=== PATIENT | female | born 1995 | race Caucasian/White ===

== ENCOUNTER 2016-11-08 21:15 | Observation (INO) ==
[2016-11-08] MEDS ORDERED: Ketorolac 15 MG/ML VIAL IVP ONE (21:40)
[2016-11-08] MEDS ORDERED: Ondansetron 4 MG/2 ML VIAL IVP ONE (21:40)
[2016-11-08] MEDS ORDERED: Ringers Solution, Lactated 1,000 ML IVC ONE (21:40)
[2016-11-08] MEDS ORDERED: *HR* HYDROmorphone (PF) 1 MG/ML SYRINGE IVP ONE (21:40)
--- NOTE | 2016-11-08 21:44 | Emergency Department Note ---
Disposition Clinical Impression: Calculus of kidney Disposition: Admitted As Inpatient Condition: Good Time of Disposition: 21:53 General Adult HPI - General Chief complaint: ED Abdominal Pain Stated complaint: Kidney stone per mary edwards Time Seen by Provider: 11/08/16 21:33 Source: patient Limitations: no limitations Nursing Notes Reviewed: Yes Vital Signs Reviewed: Yes - History of Present Illness HPI Narrative: Patient began having left flank pain 6 days ago. She states she does have history of kidney stones. Has never had to have surgery to have them removed. She was seen yesterday jerry and diagnosed with an 8 mm stone. She states that she is not discharged with Percocet and this is not helping her pain anymore. SHe is now vomiting. There are no provoking or alleviating factors. The pain radiates from her left back into her left groin. Pain Scale: 9 - Related Data Home Medications Medication Instructions Recorded Confirmed Norgestimate-Ethinyl Estradiol 1 tab PO DAILY 11/08/16 11/08/16 [Sprintec 28 Day Tablet] Omeprazole [PriLOSEC] 40 mg PO DAILY 11/08/16 11/08/16 Oxycodone HCl/Acetaminophen 1 each PO Q6H PRN 11/08/16 11/08/16 [Percocet 5-325 mg Tablet] Tamsulosin [Flomax] 0.4 mg PO DAILY 11/08/16 11/08/16 Allergies Allergy/AdvReac Type Severity Reaction Status Date / Time No Known Allergies Allergy Verified 11/08/16 21:17 All systems ED: reviewed and negative except as stated. Constitutional: Denies: fever, chills ENT ED: Denies: congestion Cardiovascular: Denies: chest pain, palpitations, dyspnea on exertion, syncope Respiratory: Denies: cough, dyspnea, wheezes Gastrointestinal: Reports: abdominal pain, nausea, vomiting. Denies: diarrhea Genitourinary: Denies: urgency, dysuria, frequency, hematuria Musculoskeletal: Reports: back pain (Left-sided). Denies: neck pain Neurological: Denies: headache, weakness Past Medical History - Past Medical History Medical history: Reports: kidney stones Psychiatric history: Reports: no psych history SHELVER history: Reports: no SHELVER history - Social History Smoking Status: Current every day smoker Smokeless Tobacco Status: No Alcohol use: Reports: rarely Drug use: Reports: none Physical Exam - General Limitations: no limitations General appearance: alert, in no apparent distress - Head Head exam: atraumatic, normocephalic, normal inspection - Eye Eye exam: Present: normal appearance, PERRL, EOMI. Absent: scleral icterus - ENT ENT exam: normal exam, normal oropharynx, mucous membranes moist - Neck Neck exam: Present: normal inspection, full ROM, trachea midline. Absent: tenderness - Chest Chest inspection: Present: normal inspection, symmetric chest wall rise - Respiratory Respiratory exam: Present: normal lung sounds bilaterally. Absent: respiratory distress, wheezes - Cardiovascular Cardiovascular exam: Present: regular rate, normal rhythm, normal heart sounds - Abdominal Exam Abdominal exam: Present: soft, tenderness (Left upper and left lower), normal bowel sounds. Absent: distention, guarding, rebound, rigidity, organomegaly, Castillo's sign, Rovsing's sign, tenderness at McBurney's Point - Extremities Exam Extremities exam: Present: normal inspection, full ROM, normal capillary refill. Absent: tenderness, pedal edema - Back Exam Back exam: Present: normal inspection, full ROM, CVA tenderness (L). Absent: tenderness, CVA tenderness (R) - Neurological Exam Neurological exam: Present: alert, oriented X3 - Psychiatric Psychiatric exam: Present: normal affect, normal mood - Skin Skin exam: Present: warm, dry, intact, normal color. Absent: rash, cyanosis Course Course Narrative: Female patient resting in bed leaning forward. She has appear to be in pain. She is holding her left back and vomiting. She states that she was diagnosed yesterday [place] with a kidney stone. She states that she was discharged with Percocet but these are not helping her pain. She states she has been able to keep the Percocet down. She states that she is now vomiting due to the pain. She denies any dysuria or hematuria however does have left back pain that radiates down into her groin. Shortness of breath or chest pain. Her lung sounds are clear heart tones are normal. Her abdomen is soft on exam however she does have some tenderness her left upper quadrant and her left flank as well as her left lower quadrant. We will provide patient with pain medication as well as antinausea medication. She does not appear toxic at this time. After reviewing her CT from [place] yesterday she has an 8 mm stone in her ureteropelvic junction. I have discussed with Dr. De Jesus bringing the patient in for management of the stone. He agrees with this plan. We will admit patient to the hospital for pain management as well as possible stone removal. - Consultations Consultation #1: Spoke with Dr. De Jesus. He agrees to admit the patient to the hospital. Time: 21:53 Vital Signs Temperature 98.3 F 11/08/16 21:18 Pulse Rate 108 11/08/16 21:18 Respiratory Rate 20 11/08/16 21:18 Blood Pressure 146/95 11/08/16 21:18 O2 Sat by Pulse Oximetry 98 11/08/16 21:18 Temperature 98.5 F 11/08/16 23:01 Pulse Rate 99 11/08/16 23:01 Respiratory Rate 18 11/08/16 23:01 Blood Pressure 135/99 11/08/16 23:01 O2 Sat by Pulse Oximetry 93 11/08/16 23:01 Oxygen Delivery Oxygen Delivery Room Air Medical Decision Making - Radiology Data Radiology results reviewed: Yes I reviewed the patient's radiology results. Attestation Statement - Attestation Attestation: I examined this patient and my medical decision-making was reviewed with the Resident Physician. I agree with the documented findings, disposition and treatment plan as described except to the extent set forth below. 8 mm dx'd yesterday, failed outpatient management - pain refractory to meds. Urology has accepted for admission.
[2016-11-08] MEDS ORDERED: Ketorolac 15 MG/ML VIAL IVP PRN (22:32)
[2016-11-08] MEDS ORDERED: *HR* OxyCODONE Immed Rel 5 MG TABLET PO PRN (22:32)
[2016-11-08] MEDS ORDERED: *HR* HYDROmorphone (PF) 1 MG/ML SYRINGE IVP PRN (22:32)
[2016-11-08] MEDS ORDERED: Naloxone 0.4 MG/ML INJ IVP PRN (22:32)
[2016-11-08] MEDS ORDERED: Acetaminophen 325 MG TABLET PO PRN (22:32)
[2016-11-08] MEDS ORDERED: Promethazine 12.5 MG in 0.9 % Sodium Chloride 50 ML IVPB PRN (22:35)
[2016-11-09] MEDS: Ondansetron 4 MG/2 ML VIAL IVP PRN ×2 (01:12→07:25)
[2016-11-09] MEDS: Ringers Solution, Lactated 1,000 ML IVC SCH ×3 (02:49→15:30)
[2016-11-09] MEDS ORDERED: *HR* Promethazine 25 MG/ML VIAL IVP PRN ×3 (06:53→18:24)
--- NOTE | 2016-11-09 08:22 | Urology History & Physical ---
Date of Encounter: 11/09/16 Time of Encounter: 08:19 Assessment and Plan (1) Calculus of kidney Current Visit: Yes Status: Acute 21 year old woman with a history of left flank pain secondary to a left 7mm UPJ stone. I recommend proceeding with a left ureteroscopy, laser lithotripsy, and stent placement. I informed her of the risks of the surgery which include, but are not limited to bleeding, infection, injury to other structures, need for further procedures, incomplete treatment, need for stent, stent irritation, need for nephrostomy tube, need for open repair and the risk of anesthesia. She is willing to proceed. History of Present Illness Chief complaint: Left flank pain HPI: Ms. Cooper is a 21 year old female presents with a 1-2 day history of left flank pain. She was seen in the ER. A CT showed a 7mm left proximal ureteral stone. She was discharged home on oral medications. The pain became worse and she had nausea with emesis. The pain was sharp and was located in the left flank and lower quadrant. She was admitted for pain control. She reports a history of kidney stones. Past Med Surg Social Fam HX - Past Medical History Medical history: kidney stones Psychiatric history: no psych history - Past Surgical History Surgical History: cholecystectomy - Social History Smoking Status: Current every day smoker Smokeless Tobacco Status: No Alcohol use: rarely Drug use: none - Family History Mother Living Status: Still Living Medications and Allergies Norgestimate-Ethinyl Estradiol [Sprintec 28 Day Tablet] 1 tab PO DAILY 11/08/16 [History] Omeprazole [PriLOSEC] 40 mg PO DAILY 11/08/16 [History] Oxycodone HCl/Acetaminophen [Percocet 5-325 mg Tablet] 1 each PO Q6H PRN [History] Tamsulosin [Flomax] 0.4 mg PO DAILY 11/08/16 [History] Allergies No Known Allergies Allergy (Verified 11/08/16 21:17) Review of Systems - Constitutional no chills, no fever(s) - EENT Nose, mouth and throat: no dizziness - Cardiovascular no chest pain - Respiratory no dyspnea - Gastrointestinal nausea, vomiting - Genitourinary Genitourinary: flank pain, no hematuria - Musculoskeletal no back pain - Integumentary no erythema, no rash - Neurological no weakness - Psychiatric no suicidal ideation - Hematologic/Lymphatic no easy bleeding - Allergic/Immunologic no wheezing Exam Initial Vital Signs Temp Pulse Resp BP Pulse Ox 98.3 F 108 20 146/95 98 11/08/16 21:18 11/08/16 21:18 11/08/16 21:18 11/08/16 21:18 11/08/16 21:18 - General physical appearance Present: well developed, well nourished, no distress - Eyes Absent: icteric - ENT Present: normal nares - Neck Present: trachea midline - Respiratory Present: normal respiratory effort - Cardiovascular Cardiovascular exam IM: RRR - Abdomen Abdomen: Present: soft Urology Results - Labs Abnormal lab results POC Glucose 94 (58-89) H 11/09/16 06:05 All other labs normal. - Imaging CT scan - abdomen: report reviewed, image reviewed CT scan - pelvis: report reviewed, image reviewed
[2016-11-09] MEDS ORDERED: *HR* Propofol 200 MG/20 ML VIAL IVP ONE (15:47)
[2016-11-09] MEDS ORDERED: Lidocaine -MPF 2% 2 ML VIAL ONE ×2 (15:47)
--- NOTE | 2016-11-09 15:56 | Anesthesia Evaluation PreOp ---
Date of Encounter: 11/09/16 Time of Encounter: 15:52 - Past History Planned Operation: L-Ureteral Stone extraction/laser lithotripsy Cardiac History: Denies any Significant Hx Pulmonary History: Denies Any Significant HX FISHER PURSE SEINE History: Denies Any Significant HX Other Medical History: Renal (Kidney stones) Anesthesia History: Past Anesthesia (Lap [place] 09/2016) Alcohol Use: rarely Drug use: none Medications and Allergies Norgestimate-Ethinyl Estradiol [Sprintec 28 Day Tablet] 1 tab PO DAILY 11/08/16 [History] Omeprazole [PriLOSEC] 40 mg PO DAILY 11/08/16 [History] Oxycodone HCl/Acetaminophen [Percocet 5-325 mg Tablet] 1 each PO Q6H PRN [History] Tamsulosin [Flomax] 0.4 mg PO DAILY 11/08/16 [History] Allergies No Known Allergies Allergy (Verified 11/08/16 21:17) - Meds/Allergy Pre-op Review Medications Reviewed: Yes Allergies Reviewed: Yes Beta Blockers on Current Med List: No Anesthesia Results - Labs Laboratory Tests 11/05/16 11/05/16 11/05/16 15:25 15:25 15:25 WBC 11.9 H Hgb 14.3 Hct 39.7 Plt Count 287 Sodium 141 Potassium 3.4 L Chloride 110 H Carbon Dioxide 17 L BUN 8 Creatinine 0.91 Est GFR (Non-Af Amer) > 60 Glucose 103 H POC Glucose Urine Test Negative 11/09/16 06:05 WBC Hgb Hct Plt Count Sodium Potassium Chloride Carbon Dioxide BUN Creatinine Est GFR (Non-Af Amer) Glucose POC Glucose 94 H Urine Test Anesthesia Exam Vital Signs Temp Pulse Resp BP Pulse Ox 11/09/16 11:39 98.5 F 95 16 131/88 98 11/09/16 07:45 98.6 F 93 96 111/77 11/09/16 03:58 98.5 F 99 16 119/76 95 11/08/16 23:01 98.5 F 99 18 135/99 93 11/08/16 22:41 18 139/96 11/08/16 22:16 102 18 140/101 95 11/08/16 21:18 98.3 F 108 20 146/95 98 Intake and Output 11/09/16 11/09/16 11/09/16 07:59 15:59 23:59 Intake Total 0 / 0 1000 / 1000 Output Total 1700 / 1700 300 / 300 Balance -1700 / -1700 700 / 700 Intake: IV Fluids 1000 / 1000 Lactated Ringers 1,000 ML 1000 / 1000 @ 125 mls/hr IVC .Q8H DEYSI Rx#:[id number] Oral 0 / 0 0 / 0 Output: Urine 1700 / 1700 300 / 300 Other: Meal NPO Weight 95.436 kg Blood Glucose* 94 80 Patient Weight 11/09/16 23:59 Weight 95.436 kg Weight: 5'4" NPO (# of Hours): 210# BMI = 36 - HEENT Pupil (Motor): Pupils equal, EOMI Mallampati: II Teeth: Normal Oral Opening: Greater than 3 - FISHER PURSE SEINE LOC: Oriented FISH[place] PUR[place] SEINE Motor: Normal RUE, Normal LUE, Normal RLE, Normal LLE, Normal Face FISHER PURSE SEINE Sensory: Normal: RUE, LUE, RLE, LLE, Face - Cardiac Rhythm: Regular Murmur: None - Pulmonary Breath Sounds: bilateral Clear Respiratory Effort: Symmetrical Anesthesia Assess/Plan ASA Score: 2 Modified Andre Scale for Level of Consciousness: Cooperative, oriented, and tranquil Anesthetic Plan: General Monitoring Plan: Standard Monitors Recovery Plan: PACU Anes Supervising Prov Stmt: Pt seen/evaluated R&B Discussed, questions answered and consent obtained. Iman Puentes MD
[2016-11-09] MEDS ORDERED: *HR* Midazolam HCl 2 MG/2 ML VIAL ONE (16:44)
[2016-11-09] MEDS ORDERED: *HR* FentaNYL (PF) 100 MCG/2 ML VIAL ONE (16:44)
[2016-11-09] MEDS ORDERED: Dexamethasone 4 MG/ML VIAL ONE (17:08)
[2016-11-09] MEDS ORDERED: Ondansetron 4 MG/2 ML VIAL ONE (17:08)
[2016-11-09] MEDS ORDERED: *HR* HYDROmorphone (PF) 1 MG/ML SYRINGE IVP PRN ×2 (17:13→18:24)
[2016-11-09] MEDS ORDERED: *HR* Morphine 2 MG/ML SYRINGE IVP PRN (17:13)
[2016-11-09] MEDS ORDERED: Ondansetron 4 MG/2 ML VIAL IVP ONE (17:13)
[2016-11-09] MEDS ORDERED: Lacri-Lube 3.5 GM TUBE ONE ×2 (17:33)
--- NOTE | 2016-11-09 17:48 | Operative Note ---
Date of procedure: 11/09/16 Pre-op diagnosis: Left ureteral stone Post-op diagnosis: same Procedure: Left ureteroscopy, laser lithotripsy, and stent placement. Implants: 6 [place] by 26 cm double-J stent. Complications: None. Anesthesia: RUSSELL Surgeon: Moise De Jesus Estimated blood loss (cc): 1 Specimen: None Condition: stable Disposition: PACU Procedure in Detail: Indications: Charisma is a 21-year-old female who has a history of nephrolithiasis. A KUB showed a left 7mm proximal ureteral stone. She elected to undergo a left ureteroscopy, laser lithotripsy, and stent placement. She was aware of the risks of the procedure including but not limited to bleeding, infection, injury to other structures, need for further procedures, stent irritation, need for nephrostomy tube, need for open repair, risks otherwise unforeseen, and the risk of anesthesia. She is willing to proceed. Procedure in Detail: After informed consent was obtained the patient was brought back to the operating room and placed in the supine position. A time out was performed. General anesthesia was administered and an LMA was placed. She was then placed in the lithotomy position. She was prepped and draped in the usual sterile fashion. Cystoscopy was performed. The anterior urethra was normal. There was no evidence of bladder tumors. The ureteral orifices were in the normal orthotopic position. There was no duplication of the ureteral orifices. The Zip wire was placed in the left ureteral orifice. The wire was then brought up into the kidney under fluoroscopic guidance. I then passed the 8/10 [place] ureteral dilator. The sensor wire was in place. The sheath was removed. I attempted to pass the 11/13 [place] ureteral access sheath, but it did not move past the distal ureter. The flexible ureteroscope was then advanced into the kidney. A stone was seen in the renal pelvis. This was moved into the upper pole calyx. The stone was then fractionated using 200 micron fiber. All the fragments seen to be less than 1 mm in diameter. The ureteroscope was then removed and the pullout ureteroscopy showed no evidence of ureteral injury. A 6 [place] by 26cm JJ stent was then placed. A good curl was seen in the kidney and the bladder. The dangle string was left intact and will be used through removed the stent at a later date. The patient was then awakened from general anesthesia and brought to recovery room in good condition. All sponge, needle, and instrument counts were correct.
--- NOTE | 2016-11-09 17:51 | Discharge Summary ---
Date of Encounter: 11/09/16 Time of Encounter: 17:48 - Discharge Diagnosis (1) Calculus of kidney Priority: Primary Status: Acute - Discharge Medications Prescriptions: OxyCODONE/APAP 5/325 [Percocet 5/325 MG] 1 each PO Q4HR PRN #20 tablet PRN Reason: Pain Docusate [Colace] 100 mg PO BID #60 capsule Phenazopyridine HCl [Pyridium] 200 mg PO TIDAC #12 tab Home Medications: Norgestimate-Ethinyl Estradiol [Sprintec 28 Day Tablet] 1 tab PO DAILY 11/08/16 [History] Omeprazole [PriLOSEC] 40 mg PO DAILY 11/08/16 [History] Oxycodone HCl/Acetaminophen [Percocet 5-325 mg Tablet] 1 each PO Q6H PRN [History] Tamsulosin [Flomax] 0.4 mg PO DAILY 11/08/16 [History] Docusate [Colace] 100 mg PO BID #60 capsule 11/09/16 [Rx] OxyCODONE/APAP 5/325 [Percocet 5/325 MG] 1 each PO Q4HR PRN #20 tablet 11/09/16 [Rx] Phenazopyridine HCl [Pyridium] 200 mg PO TIDAC #12 tab 11/09/16 [Rx] Allergies/Adverse Reactions: Allergies No Known Allergies Allergy (Verified 11/08/16 21:17) Labs on day of discharge: Labs from last 24 hours 11/09/16 11/09/16 11:23 06:05 POC Glucose 80 94 H - Impressions ITS Impressions KUB X-Ray 11/08/16 22:35 IMPRESSION: 8 mm calculus in the proximal left ureter, stable in position from yesterday's study. D/ / Moise Montelongo MD / Moise Montelongo MD Interpreting Provider: Moise Montelongo MD Date of admission: 11/08/16 22:09 Primary care physician: Violetta Crow CNP Discharging clinician: Moise De Jesus Anticipated date of discharge: 11/09/16 - Patient Status Disposition: Home, Self-Care Condition: Good Overall status at discharge: patient is progressing back to baseline - Discharge Instructions Follow Up With: Violetta Crow CNP [Primary Care Provider] - Moise De Jesus MD [Partnered Physician] - (In 2-3 weeks.) Forms: ED Satisfaction Letter, Work/School Release Additional Instructions: 1. The patient can remove her stent in 3-5 days by pulling on the string. 2. She should expect to feel flank pain with voiding. 3. The patient should call for any fevers, chills, nausea, emesis, or uncontrolled pain. 4. Please provide a work excuse if necessary for up to 1 week off. - Diet and Activity Activity: increase activity as tolerated Diet: advance to your usual diet - Hospital Course Hospital course: Ms. Cooper is a 21 year old female presented with left flank pain. A CT previously showed a 7 mm left proximal ureteral stone. She was admitted for pain control on November 08, 2016. On November 09, 2016 she underwent a left ureteroscopy , laser lithotripsy, and stent placement. She did well after that surgery and was discharged home later that day. - Time Spent with Patient Total time spent providing and/or coordinating discharge services: Exam Initial Vital Signs Temp Pulse Resp BP Pulse Ox 98.3 F 108 20 146/95 98 11/08/16 21:18 11/08/16 21:18 11/08/16 21:18 11/08/16 21:18 11/08/16 21:18 - General physical appearance Present: well developed, well nourished, no distress - Eyes Absent: icteric - ENT Present: normal nares - Neck Present: trachea midline - Respiratory Present: normal respiratory effort - Cardiovascular Cardiovascular exam IM: RRR - Abdomen Abdomen: Present: soft
[2016-11-09] MEDS ORDERED: Ringers Solution, Lactated 1,000 ML IVC SCH (18:24)
[2016-11-09] MEDS ORDERED: Ondansetron 4 MG/2 ML VIAL IVP PRN (18:24)
[2016-11-09] MEDS ORDERED: *HR* OxyCODONE Immed Rel 5 MG TABLET PO PRN (18:24)
[2016-11-09] MEDS ORDERED: Acetaminophen 325 MG TABLET PO PRN (18:24)
[2016-11-09] MEDS ORDERED: Naloxone 0.4 MG/ML INJ IVP PRN (18:24)
[2016-11-09] MEDS ORDERED: Ketorolac 15 MG/ML VIAL IVP PRN (18:24)
--- NOTE | 2016-11-09 18:26 | Anesthesia Evaluation Post Op ---
Date of Encounter: 11/09/16 Time of Encounter: 18:25 - Vital Signs Vital Signs: Vital Signs/O2 Sat/Glucose, Most Current Temp Pulse Resp BP Pulse Ox 11/09/16 17:46 98.8 F 112 18 109/75 94 11/09/16 16:05 98.6 F 77 16 121/86 100 - Lungs Lungs: Clear Ascult./Percussion - Airway Airway: Non-obstructed - Cardiovascular Regular Rate - Mental Status Mental Status: Alert & Oriented, Answers Appropriately - Pain Pain Scale: 3 (urgency) Pain Scale used: Numeric (1 - 10) - Nausea Vomiting Nausea Vomiting: Not Present - Hydration Hydration: Ice chips, Able to void - Discharge PostOp Status: Transfer Patient to floor Anes Supervising Prov Stmt: Pt seen/evaluated, R&B discussed, questions answered and consent obtained. - MD Deloris
[2016-11-09 19:50] VITALS: BP 131/91
== END 2016-11-09 19:42 | disposition home or self-care (01) ==
LOC: 3ANU 21:15 → EMEROO 21:15 → 3ANU 22:41
PROVIDERS: ADMIT Urology; ATTEND Urology

== ENCOUNTER → 2017-08-02 20:47 | Observation (INO) ==
[2017-08-02 18:15] LABS: Basophils # 0.1 K/mcL (0.0-0.2); Basophils % 0.5 %; Eosinophils % 0.2 %; Hematocrit 39.7 % (35.3-44.9); Hemoglobin 13.7 g/dL (11.5-15.4); Immature Granulocytes % 4.5 % (0-4); Lymphocytes # 3.1 K/mcL (0.6-4.6); Lymphocytes % 14.7 %; Mean Corpuscular HGB Conc 34.5 g/dL (31.6-35.5); Mean Corpuscular Hemoglobin 30.6 pg (28.0-33.3); Mean Corpuscular Volume 88.6 fL (83.0-100.0); Mean Platelet Volume 11.5 fL (9.4-12.4); Monocytes # 2.6 K/mcL (0.0-1.3); Monocytes % 12.2 %; Neutrophils # 14.5 K/mcL (1.6-8.9); Nucleated Red Blood Cells 0.1 /100 WBC (0); Platelet Count 246 K/mcL (140-400); Red Blood Count 4.48 M/mcL (3.82-4.97); Red Cell Distribution Width 13.1 % (11.5-14.5); Segmented Neutrophils % 67.9 %
--- NOTE | 2017-08-02 18:18 | OB/GYN Progress Note ---
Date of Encounter: 08/02/17 Time of Encounter: 18:15 - Assessment and Plan (1) 28 weeks gestation of Current Visit: Yes Status: Acute Admit to observation for treatment and monitoring of blood pressures. (2) Pre-eclampsia Current Visit: Yes Status: Acute Admit for observation Serial BP monitoring IV Hydralazine for BP control PIH labs, continue Procardia XL 30 as previously prescribed by [facility] physician. Plan of care in collaboration with Dr. Cosby Qualifiers: Trimester: third trimester Qualified Code(s): O14.93 - Unspecified pre- eclampsia, third trimester Subjective - Subjective Principal diagnosis: Elevated blood pressure Interval history: Charisma is a at 28w1d who arrives with complaint of elevated blood pressure on home monitor. Patient was transferred to [facility] for elevated blood pressures on 07/31/17 and discharged home yesterday. Patient denies fluid leakage and bleeding. Reports positive movement. Reports headache today that she has treated with OTC Tylenol. Last dose at 1400. Patient took her Procardia this morning at 0900. Denies epigastric pain and visual disturbances. Antepartum ROS: movement normal, no loss of fluid, no vaginal bleeding, no contractions Objective - Vital Signs Vital Signs: Intake and Output 08/02/17 08/02/17 08/02/17 07:59 15:59 23:59 Other: Weight 103.1 kg Patient Weight 08/02/17 23:59 Weight 103.1 kg - Exam FHR: auscultation normal FHR comments: FHR 150 bpm, moderate variability, +10x10 accels, appropriate for gestational age. Auscultation: bilateral: normal Abdomen: Present: normal appearance, soft, gravid Uterus: Present: normal Cervical dilation: Deferred Comments: Upper and lower extremity reflexes 3+ bilaterally. Patient denies epigastric pain and visual disturbance. Reports headache today, took Tylenol last at 1400.
[2017-08-02 18:22] LABS: Amphetamine Screen,Urine Negative ng/mL (Cutoff=1000); Barbiturate Screen,Urine Negative ng/mL (Cutoff=200); Benzodiazepines Screen,Urine Negative ng/mL (Cutoff=200); Cannabinoid Screen,Urine Negative ng/mL (Cutoff = 50); Cocaine Screen,Urine Negative ng/mL (Cutoff= 300); Opiate Screen,Urine Negative ng/mL (Cutoff=300); Phencyclidine Screen,Urine Negative ng/mL (Cutoff=25)
[2017-08-02 18:27] LABS: Protein/Creatinine Ratio,Urine 0.2 mg/mg (0.00-0.20)
[2017-08-02 18:33] LABS: Alanine Aminotransferase 12 Units/L (7-52); Aspartate Amino Transferase 15 Units/L (13-39); BUN/Creatinine Ratio 34 (6-26); Blood Urea Nitrogen 22 mg/dL (6-20); Lactate Dehydrogenase 201 Units/L (140-271); Uric Acid 6.4 mg/dL (2.3-7.6); eGFR For African Americans > 60 (> 60); eGFR For Non-African Americans > 60 (> 60)
--- NOTE | 2017-08-02 19:59 | Discharge Summary ---
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 - Discharge Medications Home Medications: Pnv No.122/Iron/Folic Acid [ Multi Tablet] 1 each PO DAILY 06/03/17 [ History] Procardia XL 30 mg PO ONCE 08/02/17 [History] Allergies/Adverse Reactions: 3 Allergy/AdvReac Type Severity Reaction Status Date / Time No Known Allergies Allergy Verified 07/30/17 17:12 Data Procedures and tests throughout hospitalization: Laboratory Tests 08/02/17 08/02/17 08/02/17 18:00 18:00 18:00 WBC 21.3 H D RBC 4.48 Hgb 13.7 Hct 39.7 MCV 88.6 MCH 30.6 MCHC 34.5 RDW 13.1 Plt Count 246 MPV 11.5 Immature Gran % 4.5 H Seg Neutrophils % 67.9 Lymphocytes % 14.7 Monocytes % 12.2 Eosinophils % 0.2 Basophils % 0.5 Neutrophils # 14.5 H Lymphocytes # 3.1 Monocytes # 2.6 H Eosinophils # 0.0 Basophils # 0.1 Nucleated RBCs/100 WBC 0.1 H BUN Creatinine Est GFR ( Amer) Est GFR (Non-Af Amer) BUN/Creatinine Ratio Uric Acid AST ALT Lactate Dehydrogenase Urine Creatinine 181 Protein/Creatinin Ratio 0.20 Urine Total Protein 36 H Urine Opiates Screen Negative Ur Barbiturates Screen Negative Ur Phencyclidine Scrn Negative Ur Amphetamines Screen Negative U Benzodiazepines Scrn Negative Urine Cocaine Screen Negative U Marijuana (THC) Screen Negative 08/02/17 18:00 WBC RBC Hgb Hct MCV MCH MCHC RDW Plt Count MPV Immature Gran % Seg Neutrophils % Lymphocytes % Monocytes % Eosinophils % Basophils % Neutrophils # Lymphocytes # Monocytes # Eosinophils # Basophils # Nucleated RBCs/100 WBC BUN 22 H Creatinine 0.64 Est GFR ( Amer) > 60 Est GFR (Non-Af Amer) > 60 BUN/Creatinine Ratio 34 H Uric Acid 6.4 AST 15 ALT 12 Lactate Dehydrogenase 201 Urine Creatinine Protein/Creatinin Ratio Urine Total Protein Urine Opiates Screen Ur Barbiturates Screen Ur Phencyclidine Scrn Ur Amphetamines Screen U Benzodiazepines Scrn Urine Cocaine Screen U Marijuana (THC) Screen Labs on day of discharge: Labs from last 24 hours 08/02/17 08/02/17 08/02/17 18:00 18:00 18:00 WBC 21.3 H D RBC 4.48 Hgb 13.7 Hct 39.7 MCV 88.6 MCH 30.6 MCHC 34.5 RDW 13.1 Plt Count 246 MPV 11.5 Immature Gran % 4.5 H Seg Neutrophils % 67.9 Lymphocytes % 14.7 Monocytes % 12.2 Eosinophils % 0.2 Basophils % 0.5 Neutrophils # 14.5 H Lymphocytes # 3.1 Monocytes # 2.6 H Eosinophils # 0.0 Basophils # 0.1 Nucleated RBCs/100 WBC 0.1 H BUN 22 H Creatinine 0.64 Est GFR ( Amer) > 60 Est GFR (Non-Af Amer) > 60 BUN/Creatinine Ratio 34 H Uric Acid 6.4 AST 15 ALT 12 Lactate Dehydrogenase 201 Urine Creatinine Protein/Creatinin Ratio Urine Total Protein Urine Opiates Screen Negative Ur Barbiturates Screen Negative Ur Phencyclidine Scrn Negative Ur Amphetamines Screen Negative U Benzodiazepines Scrn Negative Urine Cocaine Screen Negative U Marijuana (THC) Screen Negative 08/02/17 18:00 WBC RBC Hgb Hct MCV MCH MCHC RDW Plt Count MPV Immature Gran % Seg Neutrophils % Lymphocytes % Monocytes % Eosinophils % Basophils % Neutrophils # Lymphocytes # Monocytes # Eosinophils # Basophils # Nucleated RBCs/100 WBC BUN Creatinine Est GFR ( Amer) Est GFR (Non-Af Amer) BUN/Creatinine Ratio Uric Acid AST ALT Lactate Dehydrogenase Urine Creatinine 181 Protein/Creatinin Ratio 0.20 Urine Total Protein 36 H Urine Opiates Screen Ur Barbiturates Screen Ur Phencyclidine Scrn Ur Amphetamines Screen U Benzodiazepines Scrn Urine Cocaine Screen U Marijuana (THC) Screen Date of admission: 08/02/17 17:42 Primary care physician: jaquan Discharging clinician: Vega Cosby Anticipated date of discharge: 08/02/17 - Patient Status Disposition: Transfer Other Condition: Serious Functional capacity at discharge: bed bound Overall status at discharge: patient is not back to baseline - Discharge Instructions - Diet and Activity Activity: other (bedrest) Diet: other (NPO) 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 Patient was seen in the week for similar complaints and blood pressures 170/115 in the could not get her blood pressure under control with labetalol IV push and we had to transfer the patient to [facility] for medical management follow-up the patient states her blood pressure did come down. Placed her on Procardia 30 mg XL yesterday and then center home. Patient did have an ultrasound which showed that the baby was at the 18th percentile for growth and the Dopplers were abnormally elevated. The recommendation was to repeat Dopplers on Saturday however patient called the office today stating her blood pressure is 152/110 she was sent back in to labor and delivery and blood pressures remained elevated here on labor and delivery. She had blood pressures on admission of 150/100 100s and 47/146. Attempted hydralazine 10 mg IV push 2 blood pressure continued remained in the 150s over 106 110. Patient then received 20 mg of labetalol IV push this also did not touch her blood pressure repeat after the labetalol was 154/111 with a repeat of the 154/101, at this point the case was discussed with Dr. Myrick maternal medicine fellow who has accepted the patient back. On admission this time patient was complaining of headaches but no blurred vision or scotoma. Patient was hyperreflexic and had +2 pitting edema. PIH labs on the patient was still stable at 13 creatinine ratio was 0.2 uric acid was 6.4 remaining labs were normal. Patient's white count was elevated however patient did get steroids earlier in the week. Patient will be started on magnesium sulfate 4 g bolus and 2 g an hour and 1 stable patient be transferred to [facility] by EMS. Time Attestation: Total time spent providing and/or coordinating discharge services: Exam - Constitutional General appearance IM: mild distress, A&O X 3 - Respiratory Respiratory exam: Present: CTAB - Cardiovascular Cardiovascular exam IM: Present: RRR - GI/Abdominal GI/Abdominal exam IM: normal bowel sounds - Additional comments: heart tones 140s reassuring no contractions seen - Extremities Exam Additional comments: 3/4 DTRs no clonis noted, +2 pitting edema noted - Neurological Exam Additional comments: DTR's 3/4 - VTE Reasons for not Prescribing Prophylaxis: Treatment not Indicated - Low risk for VTE
[~2017-08-02 20:47] MED LIST: *HR* Labetalol 20 MG/4 ML SYRINGE IVP ONE; Acetaminophen 325 MG TABLET PO ONE; Calcium Gluconate 1,000 MG/10 ML VIAL IVPB ONE; Magnesium Sulfate 20 gm/500mL 20 GM/500 ML IV.SOLN IVC SCH; Ringers Solution, Lactated 1,000 ML IVC SCH; Ringers Solution, Lactated 1,000 ML ONE
== END | disposition short-term general hospital (02) ==
LOC: 1NENULAB
PROVIDERS: ADMIT Advanced Practice Midwife; ATTEND Advanced Practice Midwife

== ENCOUNTER 2020-04-01 06:06 | Inpatient (IN) ==
[2020-04-01] MEDS ORDERED: Lidocaine 1% 20 ML MDV INFILT PRN (06:07)
[2020-04-01] MEDS ORDERED: Naloxone 0.4 MG/ML INJ IVP PRN (06:07)
[2020-04-01] MEDS ORDERED: Metoclopramide 10 MG/2 ML VIAL IVP PRN ×2 (06:07→22:27)
[2020-04-01] MEDS ORDERED: Famotidine 20 MG/2 ML VIAL IVP PRN (06:07)
[2020-04-01] MEDS ORDERED: *HR* FentaNYL (PF) 100 MCG/2 ML VIAL IVP PRN (06:07)
[2020-04-01] MEDS ORDERED: Ringers Solution, Lactated 1,000 ML IVC SCH ×2 (06:15→22:27)
[2020-04-01] MEDS ORDERED: Oxytocin 20 units/ LR 1000 mL 20 UNIT/1,000 ML BAG IVC SCH ×3 (06:15→22:27)
[2020-04-01 06:54] LABS: Basophils # 0.1 K/mcL (0.0-0.2); Basophils % 0.5 %; Eosinophils # 0.1 K/mcL (0.0-0.6); Eosinophils % 1.3 %; Hematocrit 39.4 % (35.3-44.9); Hemoglobin 12.9 g/dL (11.5-15.4); Immature Granulocytes % 0.7 % (0-4); Lymphocytes # 2.3 K/mcL (0.6-4.6); Lymphocytes % 21.2 %; Mean Corpuscular HGB Conc 32.7 g/dL (31.6-35.5); Mean Corpuscular Hemoglobin 29.5 pg (28.0-33.3); Mean Corpuscular Volume 90.2 fL (83.0-100.0); Monocytes % 9.3 %; Neutrophils # 7.3 K/mcL (1.6-8.9); Platelet Count 235 K/mcL (140-400); Red Blood Count 4.37 M/mcL (3.82-4.97); Red Cell Distribution Width 13.4 % (11.5-14.5); White Blood Count 10.9 K/mcL (4.3-11.1)
[2020-04-01 08:51] LABS: Amphetamine Screen,Urine Negative ng/mL (Cutoff=1000); Barbiturate Screen,Urine Negative ng/mL (Cutoff=200); Benzodiazepines Screen,Urine Negative ng/mL (Cutoff=200); Cannabinoid Screen,Urine Negative ng/mL (Cutoff = 50); Cocaine Screen,Urine Negative ng/mL (Cutoff= 300); Opiate Screen,Urine Negative ng/mL (Cutoff=300); Phencyclidine Screen,Urine Negative ng/mL (Cutoff=25)
[2020-04-01] MEDS ORDERED: EPHEDrine 50 MG/ML VIAL IVP PRN (09:10)
[2020-04-01] MEDS ORDERED: Ropivacaine/PF 0.2% 20 ML VIAL EP ONE (09:10)
[2020-04-01] MEDS ORDERED: Ondansetron 4 MG/2 ML VIAL IVP PRN ×2 (09:10→22:27)
[2020-04-01] MEDS ORDERED: Epidural Premix (fent/bupiv) 110 ML EP SCH (09:15)
[2020-04-01] MEDS: Ondansetron 4 MG/2 ML VIAL IVP PRN ×2 (10:34→16:08)
[2020-04-01] MEDS ORDERED: Ropivacaine/PF 0.2% 20 ML VIAL ONE (10:54)
[2020-04-01] MEDS ORDERED: Azithromycin 500 MG in 0.9 % Sodium Chloride 250 ML IVPB STA (17:55)
[2020-04-01] MEDS ORDERED: *HR* Phenylephrine 10 MG/ML VIAL ONE (18:24)
[2020-04-01] MEDS ORDERED: Ondansetron 4 MG/2 ML VIAL ONE (18:25)
[2020-04-01] MEDS ORDERED: Dexamethasone 4 MG/ML VIAL ONE (18:25)
[2020-04-01] MEDS ORDERED: *HR* Morphine Sulfate/PF 10 MG/10 ML AMPUL ONE (19:00)
[2020-04-01] MEDS ORDERED: Acetaminophen IV 1,000 MG/100 ML INFUS..BTL ONE (19:02)
[2020-04-01] MEDS ORDERED: Simethicone 80 MG TAB.CHEW PO PRN (22:27)
[2020-04-01] MEDS ORDERED: Sennosides 8.6 MG TABLET PO PRN (22:27)
[2020-04-01] MEDS ORDERED: *HR* OxyCODONE/APAP 5/325 TABLET PO PRN (22:27)
[2020-04-01] MEDS ORDERED: Rho Immune Globulin 1,500 UNIT SYRINGE IM ONE (22:27)
[2020-04-02 03:13] LABS: Basophils % 0.1 %; Hematocrit 31.6 % (35.3-44.9); Immature Granulocytes % 0.6 % (0-4); Lymphocytes # 1.1 K/mcL (0.6-4.6); Lymphocytes % 5.4 %; Mean Corpuscular HGB Conc 33.2 g/dL (31.6-35.5); Mean Corpuscular Hemoglobin 29.9 pg (28.0-33.3); Monocytes # 1.1 K/mcL (0.0-1.3); Monocytes % 5.3 %; Platelet Count 188 K/mcL (140-400); Red Blood Count 3.51 M/mcL (3.82-4.97); Red Cell Distribution Width 13.1 % (11.5-14.5); Segmented Neutrophils % 88.6 %
[2020-04-02 03:20] LABS: Hemoglobin 10.5 g/dL (11.5-15.4); Neutrophils # 18.3 K/mcL (1.6-8.9); White Blood Count 20.6 K/mcL (4.3-11.1)
[2020-04-02] MEDS ORDERED: Ondansetron 4 MG/2 ML VIAL IVP PRN (04:39)
[2020-04-02] MEDS: Prenatal Vit/FA 1 EACH TABLET PO SCH (08:09)
[2020-04-02] MEDS: Ibuprofen 600 MG TABLET PO PRN (18:37)
[2020-04-03] MEDS: Ibuprofen 600 MG TABLET PO PRN (09:15)
[2020-04-03] MEDS: Prenatal Vit/FA 1 EACH TABLET PO SCH (09:16)
[2020-04-03 09:42] VITALS: BP 109/77
== END 2020-04-03 12:47 | disposition home or self-care (01) | DRG 540 ==
LOC: 1NENULAB 06:06 → 1NENUOBS 21:44
PROVIDERS: ADMIT Obstetrics & Gynecology; ATTEND Obstetrics & Gynecology